=== PATIENT | male | born 2000 | race Caucasian/White ===

== ENCOUNTER 2020-10-22 00:45 | Emergency (ER) | payer OTHER ==
[2020-10-22] MEDS ORDERED: Clindamycin 150 MG CAP ONE (01:49)
[2020-10-22] MEDS ORDERED: Naproxen 500 MG TAB ONE (01:49)
== END 2020-10-22 01:55 ==
LOC: NAV ERS 00:45
DX: L05.91 Pilonidal cyst without abscess (principal); L03.312 Cellulitis of back [any part except buttock and flank]; J45.909 Unspecified asthma, uncomplicated
CPT/HCPCS: 87070; 87077; 87186; 87205; 99283